=== PATIENT | female | born 1990 | race Hispanic/Latino ===

== ENCOUNTER 2024-06-30 13:38 | Emergency (ER) | payer SELFPAY ==
[~2024-06-30] VITALS: Ht 167.6 cm; Wt 102.5 kg
[2024-06-30 13:48] VITALS: PULSE 94; RESP 16; TEMP 98.4
[2024-06-30] MEDS: ONDANSETRON HCL INJ 2MG/ML 2ML 2 MG/ML VIAL IV STA (15:32)
[2024-06-30] MEDS: SODIUM CHLORIDE 0.9% 1000ML 1,000 ML IV ONE (15:33)
[2024-06-30] MEDS: KETOROLAC TROMETHAMINE 30 MG/ML VIAL IV STA (16:53)
[2024-06-30] MEDS ORDERED: CEPHALEXIN500 MG PO (17:11)
[2024-06-30] MEDS ORDERED: GLIPIZIDE-METF1 EAC1 PO (17:14)
[2024-06-30] MEDS ORDERED: MACROBID 100 M100 MG PO (17:16)
[2024-06-30] MEDS ORDERED: LISINOPRIL-HCT1 EAC2 PO (17:17)
[2024-06-30 18:46] VITALS: BP 121/84; PULSE 70; RESP 18; TEMP 98.3; O2SAT 99
== END 2024-06-30 17:23 | disposition home or self-care (01) ==
LOC: FSED 13:59
DX: R10.11 Right upper quadrant pain (principal); E11.65 Type 2 diabetes mellitus with hyperglycemia; I10 Essential (primary) hypertension; K75.81 Nonalcoholic steatohepatitis (NASH); N39.0 Urinary tract infection, site not specified; S39.011A Strain of muscle, fascia and tendon of abdomen, initial encounter; K42.9 Umbilical hernia without obstruction or gangrene
CPT/HCPCS: 36415; 74176; 76705; 80053; 80307; 81003; 81025; 82948; 85025; 99283; J0696; J1885; J2405; J7030